=== PATIENT | male | born 1970 | race Hispanic/Latino ===

== ENCOUNTER 2025-03-16 18:31 | Inpatient (IN) | payer SELFPAY ==
[~2025-03-16 18:31] MED LIST: Iopamidol-370 76% 500 ML MDV (1 ML CHARGE) ONE
[2025-03-16] MEDS ORDERED: cefTRIAXone (ROCEPHIN) 1 GM VIAL ONE (19:55)
[2025-03-16] MEDS ORDERED: Pantoprazole 40 MG VIAL ONE ×3 (19:55→22:01)
[2025-03-16 20:16] LABS: #Basophils 0.07 10x3/uL (0.0-0.2); #Eosinophils 0.09 10x3/uL (0.0-0.7); #Monocytes 1.10 10x3/uL (0.11-0.59); #Neutrophils 9.08 10x3/uL (1.40-6.50); %Basophils 0.6 % (0.0-1.0); %Eosinophils 0.7 % (0.0-10.0); %Lymphocytes 15.7 % (21.0-51.0); %Monocytes 8.9 % (0.0-10.0); %Neutrophils 73.6 % (42.0-75.0); Hematocrit 23.5 % (42.0-52.0); Hemoglobin 7.8 g/dL (14.0-18.0); Mean Corpuscular Hemoglobin 32.2 pg (27.0-31.0); Mean Corpuscular Volume 97.1 fL (78.0-98.0); Platelet Count 135 10x3/uL (130-400); Red Blood Cell (RBC) Count 2.42 mill/uL (4.70-6.10); White Blood Cell (WBC) Count 12.33 10x3/uL (4.8-10.8)
[2025-03-16 20:30] LABS: ALT (SGPT) 28 U/L (Less than 45); AST (SGOT) 119 U/L (11-34); Albumin 1.9 g/dL (3.1-4.5); Alkaline Phosphatase 238 U/L (40-110); Anion Gap 14 mmol/L (10-20); BUN (Urea Nitrogen) Less than 4 mg/dL (8.4-25.7); Bilirubin, Total 7.3 mg/dL (0.3-1.2); Calc. Creatinine Clearance 0 mL/min (70-130); Calcium 7.4 mg/dL (7.8-10.44); Carbon Dioxide 26 mmol/L (22-29); Chloride 92 mmol/L (98-107); Globulin 6.0 g/dL (2.4-3.5); Glucose 117 mg/dL (70-105); INR-International Normal Ratio 2.3; Lipase 44 U/L (8-78); Magnesium 1.8 mg/dL (1.6-2.6); Potassium 3.5 mmol/L (3.5-5.1); Prothrombin Time 25.3 sec (12.0-14.7); Sodium 128 mmol/L (136-145)
[2025-03-16 20:31] LABS: Acetaminophen Less than 10 mcg/mL (Less than 10); Salicylate Less than 8.0 mg/dL (Less than 8.0)
[2025-03-16 20:33] LABS: PTT 52.8 sec (22.9-36.1)
[2025-03-16 20:42] LABS: D-Dimer Test 12.87 mcg/mL (0.27-0.43)
[2025-03-16] MEDS ORDERED: Octreotide Acetate 1,250 MCG in Sodium Chloride 0.9% 250 ML 250 ML IVPB SCH ×2 (21:45→22:45)
[2025-03-16] MEDS ORDERED: Ondansetron PF 4 MG/2 ML Vial IVP PRN (22:41)
[2025-03-16] MEDS ORDERED: Acetaminophen 325 MG TAB PO PRN (22:41)
[2025-03-16] MEDS ORDERED: Electrolyte Replacement Protocol 1 EACH FS SCH (22:45)
[2025-03-17] MEDS: cefTRIAXone\\ROCEPHIN 1 GM in Sodium Chloride 0.9% 100 ML IVPB SCH ×2 (00:15→09:58)
[2025-03-17] MEDS: Multivitamins, Adult 10 ML, Thiamine HCl 100 MG, Folic Acid 1 MG in Dextrose 5 %-0.45 %... IV ONE (00:15)
[2025-03-17 04:09] LABS: #Basophils 0.04 10x3/uL (0.0-0.2); #Eosinophils 0.04 10x3/uL (0.0-0.7); #Monocytes 0.70 10x3/uL (0.11-0.59); #Neutrophils 7.29 10x3/uL (1.40-6.50); %Basophils 0.4 % (0.0-1.0); %Eosinophils 0.4 % (0.0-10.0); %Lymphocytes 13.6 % (21.0-51.0); %Monocytes 7.4 % (0.0-10.0); %Neutrophils 77.7 % (42.0-75.0); Hematocrit 26.0 % (42.0-52.0); Hemoglobin 8.7 g/dL (14.0-18.0); Mean Corpuscular Hemoglobin 32.1 pg (27.0-31.0); Mean Corpuscular Volume 95.9 fL (78.0-98.0); Platelet Count 89 10x3/uL (130-400); Red Blood Cell (RBC) Count 2.71 mill/uL (4.70-6.10); White Blood Cell (WBC) Count 9.40 10x3/uL (4.8-10.8)
[2025-03-17 04:40] LABS: ALT (SGPT) 27 U/L (Less than 45); AST (SGOT) 111 U/L (11-34); Albumin 1.7 g/dL (3.1-4.5); Alkaline Phosphatase 245 U/L (40-110); Anion Gap 11 mmol/L (10-20); BUN (Urea Nitrogen) Less than 4 mg/dL (8.4-25.7); Bilirubin, Total 6.0 mg/dL (0.3-1.2); Calc. Creatinine Clearance 200 mL/min (70-130); Calcium 7.2 mg/dL (7.8-10.44); Carbon Dioxide 22 mmol/L (22-29); Chloride 97 mmol/L (98-107); Globulin 5.9 g/dL (2.4-3.5); Glucose 175 mg/dL (70-105); Potassium 3.8 mmol/L (3.5-5.1); Sodium 126 mmol/L (136-145)
[2025-03-17 04:41] LABS: INR-International Normal Ratio 2.5; Prothrombin Time 27.0 sec (12.0-14.7)
[2025-03-17 04:42] LABS: PTT 55.7 sec (22.9-36.1)
[2025-03-17 05:01] LABS: Hep A IgM AB NONREACTIVE (NonReactive); Hep A IgM S/CO 0.28 S/CO (0-0.79); Hep B Core IgM Index 0.15 S/CO (0-0.79); Hep B Surf Ag NONREACTIVE S/CO (NonReactive); Hep C IgG Ab NONREACTIVE S/CO (NonReactive); Hep C Index 0.32 S/CO (0-0.79)
[2025-03-17] MEDS: Potassium Chloride 20 MEQ in Premix 1 BAG IVPB SCH ×2 (05:18→05:47)
[2025-03-17] MEDS: Magnesium 2 GM/50 ML(in water) 2 GM in Premix 1 BAG IVPB SCH ×2 (05:18→05:41)
[2025-03-17 08:17] LABS: Hematocrit 28.1 % (42.0-52.0); Hemoglobin 9.3 g/dL (14.0-18.0); Platelet Count 108 10x3/uL (130-400)
[2025-03-17] MEDS ORDERED: Folic Acid 1 MG TAB PO SCH (09:00)
[2025-03-17] MEDS ORDERED: Multivit, Therapeutic 1 TAB PO SCH (09:00)
[2025-03-17] MEDS ORDERED: Electrolyte Replacement Protocol 1 EACH FS SCH (09:15)
[2025-03-17] MEDS: Multivit, Therapeutic 1 TAB PO SCH (09:17)
[2025-03-17] MEDS: Folic Acid 1 MG TAB PO SCH (09:17)
[2025-03-17 11:06] LABS: INR-International Normal Ratio 2.5; Prothrombin Time 26.9 sec (12.0-14.7)
[2025-03-17 11:07] LABS: PTT 55.3 sec (22.9-36.1)
[2025-03-17] MEDS ORDERED: Lidocaine 1% w/Epinephrine 1:100K 20 ML VIAL ONE (11:19)
[2025-03-17] MEDS ORDERED: Sodium Bicarbonate 2.5 MEQ/5 ML SDV ONE (11:19)
[2025-03-17 13:47] LABS: RBC Count-Automated (BF) 57 /cu.mm; WBC/Nucleated-Auto (BF) 114 /cu.mm
[2025-03-17] MEDS ORDERED: Pantoprazole 80 MG, Admixture Fee 1 EACH in Sodium Chloride 0.9% 100 ML IVPB SCH (14:00)
[2025-03-17] MEDS: Albumin 25% 25 GM (100 mL) BOT IVPB SCH (14:10)
[2025-03-17 15:14] LABS: BF Segmented Neutrophils 8 %; Cell Count Non Hematic 89 %
[2025-03-17] MEDS: Pantoprazole 40 MG VIAL IVP SCH (15:39)
[2025-03-17] MEDS: Multivitamins, Adult 10 ML, Folic Acid 1 MG, Thiamine HCl 100 MG in Dextrose 5 %-0.45 %... IV SCH (15:39)
[2025-03-17] MEDS: Mupirocin 1 GM TUBE NASAL DECOLONIZATION TP SCH (15:53)
[2025-03-17] MEDS: Cyanocobalamin (Vitamin B-12) 1,000 MCG TAB PO SCH (21:49)
[2025-03-17] MEDS: Mupirocin 1 GM TUBE NASAL DECOLOIZATION TP SCH (21:50)
[2025-03-18 04:56] LABS: #Basophils 0.04 10x3/uL (0.0-0.2); #Eosinophils 0.03 10x3/uL (0.0-0.7); #Monocytes 0.80 10x3/uL (0.11-0.59); #Neutrophils 6.22 10x3/uL (1.40-6.50); %Basophils 0.5 % (0.0-1.0); %Eosinophils 0.4 % (0.0-10.0); %Lymphocytes 15.6 % (21.0-51.0); %Monocytes 9.5 % (0.0-10.0); %Neutrophils 73.6 % (42.0-75.0); Hematocrit 25.6 % (42.0-52.0); Hemoglobin 8.9 g/dL (14.0-18.0); Mean Corpuscular Hemoglobin 31.8 pg (27.0-31.0); Mean Corpuscular Volume 91.4 fL (78.0-98.0); Platelet Count 108 10x3/uL (130-400); Red Blood Cell (RBC) Count 2.80 mill/uL (4.70-6.10); White Blood Cell (WBC) Count 8.44 10x3/uL (4.8-10.8)
[2025-03-18 05:06] LABS: INR-International Normal Ratio 3.1; Prothrombin Time 32.2 sec (12.0-14.7)
[2025-03-18 05:12] LABS: Immunoglob - G (Total IgG) 2341 mg/dL (540-1822); Immunoglob - M (Total IgM) 206 mg/dL (22-240)
[2025-03-18 05:13] LABS: ALT (SGPT) 19 U/L (Less than 45); AST (SGOT) 75 U/L (11-34); Albumin 2.6 g/dL (3.1-4.5); Alkaline Phosphatase 172 U/L (40-110); Anion Gap 5 mmol/L (10-20); BUN (Urea Nitrogen) Less than 4 mg/dL (8.4-25.7); Bilirubin, Total 7.5 mg/dL (0.3-1.2); Calc. Creatinine Clearance 205 mL/min (70-130); Calcium 7.4 mg/dL (7.8-10.44); Carbon Dioxide 25 mmol/L (22-29); Chloride 101 mmol/L (98-107); Globulin 4.2 g/dL (2.4-3.5); Glucose 120 mg/dL (70-105); Iron 85 ug/dL (65-175); Iron Binding Capacity, Total 123 mcg/dL (261-462); Magnesium 1.6 mg/dL (1.6-2.6); Potassium 3.3 mmol/L (3.5-5.1); Sodium 128 mmol/L (136-145)
[2025-03-18 05:51] LABS: Ferritin 62.93 ng/mL (22-322); Vitamin B12 Greater than 2000 pg/mL (211-911)
[2025-03-18] MEDS: Magnesium 2 GM/50 ML(in water) 2 GM in Premix 1 BAG IVPB SCH (09:17)
[2025-03-18] MEDS: Cholecalciferol 1,000 UNITS (25 MCG) TAB PO SCH (09:18)
[2025-03-18] MEDS: PHOS-NAK 1 PKT PACK PO SCH (09:18)
[2025-03-18] MEDS: predniSONE 20 MG TAB PO SCH (09:45)
[2025-03-18 11:50] LABS: dsDNA IgG Antibody 2.1 IU/mL (<10 Negative)
[2025-03-18 12:08] LABS: ANA Symphony (Qualitative) Negative (Negative); ANA Symphony (Quantitative) Less than 0.1 Ratio (< 0.7 Negative); EliA Vaculitis New Method **** NEW METHOD ****; Mitochondrial Ab Less than 0.5 U/mL (<4 Negative)
[2025-03-18] MEDS: ACETYLCYSTEINE IV SCH ×3 (12:08→19:55)
[2025-03-18] MEDS: DEXTROSE IV SCH ×3 (12:08→19:55)
[2025-03-18] MEDS: ADMIXTURE FEE IV SCH ×3 (12:08→19:55)
[2025-03-18] MEDS: [UNRECOGNIZED DRUG - OTHER] IV SCH (12:08)
[2025-03-18] MEDS: [UNRECOGNIZED DRUG - OTHER] IV SCH (13:01)
[2025-03-18] MEDS: [UNRECOGNIZED DRUG - OTHER] IV SCH (19:55)
[2025-03-19 03:55] LABS: #Basophils 0.03 10x3/uL (0.0-0.2); #Eosinophils 0.07 10x3/uL (0.0-0.7); #Monocytes 0.63 10x3/uL (0.11-0.59); #Neutrophils 4.67 10x3/uL (1.40-6.50); %Basophils 0.5 % (0.0-1.0); %Eosinophils 1.1 % (0.0-10.0); %Lymphocytes 15.4 % (21.0-51.0); %Monocytes 9.8 % (0.0-10.0); %Neutrophils 72.9 % (42.0-75.0); Hematocrit 24.6 % (42.0-52.0); Hemoglobin 8.4 g/dL (14.0-18.0); Mean Corpuscular Hemoglobin 31.9 pg (27.0-31.0); Mean Corpuscular Volume 93.5 fL (78.0-98.0); Platelet Count 100 10x3/uL (130-400); Red Blood Cell (RBC) Count 2.63 mill/uL (4.70-6.10); White Blood Cell (WBC) Count 6.41 10x3/uL (4.8-10.8)
[2025-03-19 04:04] LABS: ALT (SGPT) 16 U/L (Less than 45); AST (SGOT) 65 U/L (11-34); Albumin 2.0 g/dL (3.1-4.5); Alkaline Phosphatase 122 U/L (40-110); Anion Gap 7 mmol/L (10-20); BUN (Urea Nitrogen) Less than 4 mg/dL (8.4-25.7); Bilirubin, Total 7.8 mg/dL (0.3-1.2); Calc. Creatinine Clearance 207 mL/min (70-130); Calcium 7.3 mg/dL (7.8-10.44); Carbon Dioxide 27 mmol/L (22-29); Chloride 95 mmol/L (98-107); Globulin 4.0 g/dL (2.4-3.5); Glucose 129 mg/dL (70-105); Magnesium 1.9 mg/dL (1.6-2.6); Potassium 3.0 mmol/L (3.5-5.1); Sodium 126 mmol/L (136-145)
[2025-03-19] MEDS: Magnesium 2 GM/50 ML(in water) 2 GM in Premix 1 BAG IVPB SCH (08:51)
[2025-03-19] MEDS ORDERED: Lactulose 20 GM (30 mL) UDCUP PO PRN (11:57)
[2025-03-20 04:35] LABS: Magnesium 2.1 mg/dL (1.6-2.6)
[2025-03-20 08:09] LABS: #Basophils Less than 0.03 10x3/uL (0.0-0.2); #Eosinophils Less than 0.03 10x3/uL (0.0-0.7); #Monocytes 0.84 10x3/uL (0.11-0.59); #Neutrophils 7.91 10x3/uL (1.40-6.50); %Basophils 0.1 % (0.0-1.0); %Eosinophils 0.0 % (0.0-10.0); %Lymphocytes 14.7 % (21.0-51.0); %Monocytes 8.1 % (0.0-10.0); %Neutrophils 76.7 % (42.0-75.0); Hematocrit 26.3 % (42.0-52.0); Hemoglobin 9.2 g/dL (14.0-18.0); Mean Corpuscular Hemoglobin 32.6 pg (27.0-31.0); Mean Corpuscular Volume 93.3 fL (78.0-98.0); Platelet Count 109 10x3/uL (130-400); Red Blood Cell (RBC) Count 2.82 mill/uL (4.70-6.10); White Blood Cell (WBC) Count 10.32 10x3/uL (4.8-10.8)
[2025-03-20 08:11] LABS: Anion Gap 9 mmol/L (10-20); BUN (Urea Nitrogen) 4 mg/dL (8.4-25.7); Calc. Creatinine Clearance 222 mL/min (70-130); Calcium 7.4 mg/dL (7.8-10.44); Carbon Dioxide 24 mmol/L (22-29); Chloride 96 mmol/L (98-107); Glucose 135 mg/dL (70-105); Potassium 3.7 mmol/L (3.5-5.1); Sodium 125 mmol/L (136-145)
[2025-03-20] MEDS ORDERED: PNEUMOC 20-VAL CONJ-DIP CRM/PF 0.5 ML SYRINGE IM ONE (09:00)
[2025-03-21 04:03] LABS: INR-International Normal Ratio 2.7; Prothrombin Time 28.8 sec (12.0-14.7)
[2025-03-21 04:09] LABS: ALT (SGPT) 23 U/L (Less than 45); AST (SGOT) 86 U/L (11-34); Albumin 2.0 g/dL (3.1-4.5); Anion Gap 11 mmol/L (10-20); BUN (Urea Nitrogen) 5 mg/dL (8.4-25.7); Bilirubin, Total 6.4 mg/dL (0.3-1.2); Calc. Creatinine Clearance 216 mL/min (70-130); Calcium 7.8 mg/dL (7.8-10.44); Carbon Dioxide 24 mmol/L (22-29); Chloride 97 mmol/L (98-107); Globulin 4.4 g/dL (2.4-3.5); Glucose 159 mg/dL (70-105); Potassium 3.9 mmol/L (3.5-5.1); Sodium 128 mmol/L (136-145)
[2025-03-21 04:41] LABS: Alkaline Phosphatase 131 U/L (40-110)
[2025-03-21 08:15] LABS: #Basophils Less than 0.03 10x3/uL (0.0-0.2); #Eosinophils Less than 0.03 10x3/uL (0.0-0.7); #Monocytes 0.53 10x3/uL (0.11-0.59); #Neutrophils 6.74 10x3/uL (1.40-6.50); %Basophils 0.0 % (0.0-1.0); %Eosinophils 0.0 % (0.0-10.0); %Lymphocytes 10.3 % (21.0-51.0); %Monocytes 6.5 % (0.0-10.0); %Neutrophils 83.0 % (42.0-75.0); Hematocrit 28.8 % (42.0-52.0); Hemoglobin 9.4 g/dL (14.0-18.0); Mean Corpuscular Hemoglobin 31.6 pg (27.0-31.0); Mean Corpuscular Volume 97.0 fL (78.0-98.0); Platelet Count 103 10x3/uL (130-400); Red Blood Cell (RBC) Count 2.97 mill/uL (4.70-6.10); White Blood Cell (WBC) Count 8.13 10x3/uL (4.8-10.8)
[2025-03-21 08:28] LABS: Anion Gap 11 mmol/L (10-20); BUN (Urea Nitrogen) 4 mg/dL (8.4-25.7); Calc. Creatinine Clearance 220 mL/min (70-130); Calcium 7.8 mg/dL (7.8-10.44); Carbon Dioxide 24 mmol/L (22-29); Chloride 98 mmol/L (98-107); Glucose 128 mg/dL (70-105); Potassium 3.9 mmol/L (3.5-5.1); Sodium 129 mmol/L (136-145)
[2025-03-21 10:54] LABS: INR-International Normal Ratio 2.9; PTT 48.9 sec (22.9-36.1); Prothrombin Time 30.2 sec (12.0-14.7)
[2025-03-21 11:14] LABS: ALT (SGPT) 23 U/L (Less than 45); AST (SGOT) 77 U/L (11-34); Albumin 1.9 g/dL (3.1-4.5); Alkaline Phosphatase 130 U/L (40-110); Bilirubin, Direct 3.6 mg/dL (0.1-0.3); Bilirubin, Total 6.2 mg/dL (0.3-1.2)
[2025-03-22 06:55] LABS: #Basophils Less than 0.03 10x3/uL (0.0-0.2); #Eosinophils Less than 0.03 10x3/uL (0.0-0.7); #Monocytes 1.53 10x3/uL (0.11-0.59); #Neutrophils 11.70 10x3/uL (1.40-6.50); %Basophils 0.1 % (0.0-1.0); %Eosinophils 0.0 % (0.0-10.0); %Lymphocytes 9.5 % (21.0-51.0); %Monocytes 10.4 % (0.0-10.0); %Neutrophils 79.6 % (42.0-75.0); Hematocrit 26.4 % (42.0-52.0); Hemoglobin 9.0 g/dL (14.0-18.0); Mean Corpuscular Hemoglobin 32.5 pg (27.0-31.0); Mean Corpuscular Volume 95.3 fL (78.0-98.0); Platelet Count 141 10x3/uL (130-400); Red Blood Cell (RBC) Count 2.77 mill/uL (4.70-6.10); White Blood Cell (WBC) Count 14.70 10x3/uL (4.8-10.8)
[2025-03-22 07:57] LABS: Anion Gap 12 mmol/L (10-20); BUN (Urea Nitrogen) 6 mg/dL (8.4-25.7); Calc. Creatinine Clearance 212 mL/min (70-130); Carbon Dioxide 22 mmol/L (22-29); Chloride 97 mmol/L (98-107); Glucose 113 mg/dL (70-105); Potassium 3.7 mmol/L (3.5-5.1); Sodium 127 mmol/L (136-145)
[2025-03-22 07:58] LABS: Calcium 7.8 mg/dL (7.8-10.44)
[2025-03-22 10:23] LABS: ALT (SGPT) 27 U/L (Less than 45); AST (SGOT) 83 U/L (11-34); Albumin 1.9 g/dL (3.1-4.5); Alkaline Phosphatase 125 U/L (40-110); Bilirubin, Direct 3.1 mg/dL (0.1-0.3); Bilirubin, Total 5.3 mg/dL (0.3-1.2)
[2025-03-23 05:43] LABS: ALT (SGPT) 36 U/L (Less than 45); AST (SGOT) 109 U/L (11-34); Albumin 1.9 g/dL (3.1-4.5); Alkaline Phosphatase 133 U/L (40-110); Bilirubin, Direct 3.5 mg/dL (0.1-0.3); Bilirubin, Total 5.9 mg/dL (0.3-1.2)
[2025-03-23 09:26] LABS: #Basophils Less than 0.03 10x3/uL (0.0-0.2); #Eosinophils 0.05 10x3/uL (0.0-0.7); #Monocytes 0.86 10x3/uL (0.11-0.59); #Neutrophils 6.44 10x3/uL (1.40-6.50); %Basophils 0.1 % (0.0-1.0); %Eosinophils 0.6 % (0.0-10.0); %Lymphocytes 11.7 % (21.0-51.0); %Monocytes 10.3 % (0.0-10.0); %Neutrophils 77.1 % (42.0-75.0); Hematocrit 28.8 % (42.0-52.0); Hemoglobin 9.5 g/dL (14.0-18.0); Mean Corpuscular Hemoglobin 31.9 pg (27.0-31.0); Mean Corpuscular Volume 96.6 fL (78.0-98.0); Platelet Count 92 10x3/uL (130-400); Red Blood Cell (RBC) Count 2.98 mill/uL (4.70-6.10); White Blood Cell (WBC) Count 8.36 10x3/uL (4.8-10.8)
[2025-03-23 09:47] LABS: Anion Gap 11 mmol/L (10-20); BUN (Urea Nitrogen) 7 mg/dL (8.4-25.7); Calc. Creatinine Clearance 212 mL/min (70-130); Calcium 7.8 mg/dL (7.8-10.44); Carbon Dioxide 25 mmol/L (22-29); Chloride 97 mmol/L (98-107); Glucose 94 mg/dL (70-105); Potassium 3.5 mmol/L (3.5-5.1); Sodium 129 mmol/L (136-145)
[2025-03-23] MEDS ORDERED: Potassium Bicarbonate/Cit Ac 20 MEQ TAB PER TUBE SCH (10:45)
[2025-03-23] MEDS: Albumin 25% 25 GM (100 mL) BOT IVPB SCH (11:50)
[2025-03-23] MEDS: Potassium Chloride 20 MEQ in Premix 1 BAG IVPB SCH (11:50)
[2025-03-23] MEDS: Lactulose 20 GM (30 mL) UDCUP PO SCH (21:38)
[2025-03-24 03:44] LABS: #Basophils Less than 0.03 10x3/uL (0.0-0.2); #Eosinophils 0.03 10x3/uL (0.0-0.7); #Monocytes 1.04 10x3/uL (0.11-0.59); #Neutrophils 8.74 10x3/uL (1.40-6.50); %Basophils 0.2 % (0.0-1.0); %Eosinophils 0.3 % (0.0-10.0); %Lymphocytes 8.8 % (21.0-51.0); %Monocytes 9.6 % (0.0-10.0); %Neutrophils 80.5 % (42.0-75.0); Hematocrit 26.7 % (42.0-52.0); Hemoglobin 9.2 g/dL (14.0-18.0); Mean Corpuscular Hemoglobin 32.6 pg (27.0-31.0); Mean Corpuscular Volume 94.7 fL (78.0-98.0); Platelet Count 99 10x3/uL (130-400); Red Blood Cell (RBC) Count 2.82 mill/uL (4.70-6.10); White Blood Cell (WBC) Count 10.85 10x3/uL (4.8-10.8)
[2025-03-24 03:53] LABS: ALT (SGPT) 33 U/L (Less than 45); AST (SGOT) 95 U/L (11-34); Albumin 2.8 g/dL (3.1-4.5); Alkaline Phosphatase 123 U/L (40-110); Anion Gap 13 mmol/L (10-20); BUN (Urea Nitrogen) 5 mg/dL (8.4-25.7); Bilirubin, Direct 4.5 mg/dL (0.1-0.3); Bilirubin, Total 8.4 mg/dL (0.3-1.2); Calc. Creatinine Clearance 237 mL/min (70-130); Calcium 8.4 mg/dL (7.8-10.44); Carbon Dioxide 23 mmol/L (22-29); Chloride 96 mmol/L (98-107); Globulin 3.7 g/dL (2.4-3.5); Glucose 83 mg/dL (70-105); Potassium 3.7 mmol/L (3.5-5.1); Sodium 128 mmol/L (136-145)
[2025-03-24 03:56] LABS: INR-International Normal Ratio 2.7; Prothrombin Time 29.1 sec (12.0-14.7)
[2025-03-24 06:32] VITALS: BMI 23.4
[2025-03-24] MEDS ORDERED: Proctozone-HC 30 GM TUBE TOP SCH (09:00)
[2025-03-24] MEDS: Lidocaine 2% 6 ML (Jelly) SYR TOP SCH (12:16)
[2025-03-24] MEDS: Albumin 25% 25 GM (100 mL) BOT IVPB SCH (12:17)
[2025-03-24 15:24] VITALS: BP 157/90
[2025-03-24] MEDS: Metoprolol Tartrate 5 MG (5 mL) VIAL IVP SCH (23:09)
[2025-03-25] MEDS ORDERED: Metoprolol Tartrate 5 MG (5 mL) VIAL IVP PRN (03:13)
[2025-03-25 05:17] LABS: #Basophils 0.04 10x3/uL (0.0-0.2); #Eosinophils 0.06 10x3/uL (0.0-0.7); #Monocytes 1.40 10x3/uL (0.11-0.59); #Neutrophils 12.35 10x3/uL (1.40-6.50); %Basophils 0.3 % (0.0-1.0); %Eosinophils 0.4 % (0.0-10.0); %Lymphocytes 8.6 % (21.0-51.0); %Monocytes 9.2 % (0.0-10.0); %Neutrophils 81.2 % (42.0-75.0); Hematocrit 28.3 % (42.0-52.0); Hemoglobin 9.2 g/dL (14.0-18.0); Mean Corpuscular Hemoglobin 32.1 pg (27.0-31.0); Mean Corpuscular Volume 98.6 fL (78.0-98.0); Platelet Count 115 10x3/uL (130-400); Red Blood Cell (RBC) Count 2.87 mill/uL (4.70-6.10); White Blood Cell (WBC) Count 15.21 10x3/uL (4.8-10.8)
[2025-03-25 05:20] LABS: ALT (SGPT) 29 U/L (Less than 45); AST (SGOT) 86 U/L (11-34); Albumin 3.5 g/dL (3.1-4.5); Alkaline Phosphatase 113 U/L (40-110); Anion Gap 14 mmol/L (10-20); BUN (Urea Nitrogen) 4 mg/dL (8.4-25.7); Bilirubin, Direct 5.2 mg/dL (0.1-0.3); Bilirubin, Total 9.7 mg/dL (0.3-1.2); Calc. Creatinine Clearance 268 mL/min (70-130); Calcium 8.9 mg/dL (7.8-10.44); Carbon Dioxide 22 mmol/L (22-29); Chloride 98 mmol/L (98-107); Globulin 3.5 g/dL (2.4-3.5); Glucose 91 mg/dL (70-105); Potassium 3.7 mmol/L (3.5-5.1); Sodium 130 mmol/L (136-145)
[2025-03-25 05:59] LABS: INR-International Normal Ratio 2.7; PTT 55.0 sec (22.9-36.1); Prothrombin Time 29.1 sec (12.0-14.7)
[2025-03-25 07:47] VITALS: TEMP 98.1
[2025-03-25 09:56] VITALS: BMI 23.6
[2025-03-25] MEDS: Scopolamine 1 mg/72 hour Patch TD SCH (14:56)
[2025-03-25] MEDS ORDERED: Scopolamine 1 mg/72 hour Patch TD PRN (14:56)
[2025-03-25] MEDS ORDERED: Glycopyrrolate 0.4 MG/ 2 ML VIAL SLOW IVP PRN (15:06)
== END 2025-03-26 07:24 | disposition expired | DRG 432 ==
LOC: ERS 18:31 → IMCU/EMU 22:54 → T4-A 03-26 05:23
PROVIDERS: ADMIT Student in an Organized Health Care Education/Training Program; ATTEND Internal Medicine
PROC: 3E03329 Introduction of Other Anti-infective into Peripheral Vein, Percutaneous Approach (ICD-10-PCS; 2025-03-16)
PROC: 30233N1 Transfusion of Nonautologous Red Blood Cells into Peripheral Vein, Percutaneous Approach (ICD-10-PCS; principal; 2025-03-17)
PROC: 0W9G3ZZ Drainage of Peritoneal Cavity, Percutaneous Approach (ICD-10-PCS; 2025-03-17)
PROC: 30233J1 Transfusion of Nonautologous Serum Albumin into Peripheral Vein, Percutaneous Approach (ICD-10-PCS; 2025-03-18)
PROC: 3E0234Z Introduction of Serum, Toxoid and Vaccine into Muscle, Percutaneous Approach (ICD-10-PCS; 2025-03-20)
PROC: 0D9670Z Drainage of Stomach with Drainage Device, Via Natural or Artificial Opening (ICD-10-PCS; 2025-03-24)
DX: K70.31 Alcoholic cirrhosis of liver with ascites (principal); G93.41 Metabolic encephalopathy; N18.6 End stage renal disease; S22.062A Unstable burst fracture of T7-T8 vertebra, initial encounter for closed fracture; S32.039A Unspecified fracture of third lumbar vertebra, initial encounter for closed fracture; E87.20 Acidosis, unspecified; E87.1 Hypo-osmolality and hyponatremia; D62 Acute posthemorrhagic anemia; F10.231 Alcohol dependence with withdrawal delirium; I12.0 Hypertensive chronic kidney disease with stage 5 chronic kidney disease or end stage renal disease; F10.221 Alcohol dependence with intoxication delirium; D68.4 Acquired coagulation factor deficiency; R44.3 Hallucinations, unspecified; K76.6 Portal hypertension; Z66 Do not resuscitate; Z51.5 Encounter for palliative care; Z23 Encounter for immunization; K70.11 Alcoholic hepatitis with ascites; K70.40 Alcoholic hepatic failure without coma; D63.1 Anemia in chronic kidney disease; R54 Age-related physical debility; E55.9 Vitamin D deficiency, unspecified; R29.6 Repeated falls; R13.12 Dysphagia, oropharyngeal phase; H54.7 Unspecified visual loss; D69.6 Thrombocytopenia, unspecified; E88.09 Other disorders of plasma-protein metabolism, not elsewhere classified; K76.82 Hepatic encephalopathy; Y90.8 Blood alcohol level of 240 mg/100 ml or more; Z87.891 Personal history of nicotine dependence; E87.6 Hypokalemia; R45.1 Restlessness and agitation; N50.89 Other specified disorders of the male genital organs; N48.89 Other specified disorders of penis; R33.9 Retention of urine, unspecified; Z79.899 Other long term (current) drug therapy; Y92.89 Other specified places as the place of occurrence of the external cause; W11.XXXA Fall on and from ladder, initial encounter
CPT/HCPCS: 36415; 36416; 36430; 49083; 70450; 71260; 74018; 74177; 76705; 80048; 80053; 80074; 80076; 80307; 82042; 82105; 82140; 82306; 82390; 82607; 82728; 83036; 83516; 83540; 83550; 83605; 83690; 83735; 83880; 84100; 84157; 84484; 85025; 85046; 85060; 85379; 85610; 85730; 86038; 86225; 86850; 86900; 86901; 87040; 87149; 88112; 88305; 89051; 93005; 96365; 96366; 96367; 96375; J0132; J0696; J2060; J2270; J2354; J2470; J3411; J3430; J3475; J3480; J7030; J7042; J7050; J7070; J7512; P9016; P9047; Q9967